=== PATIENT | female | born 1970 | race African-American/Black ===

== ENCOUNTER 2017-04-27 15:43 | Emergency (ER) | payer OTHER ==
[~2017-04-27] VITALS: Ht 172.7 cm; Wt 125.0 kg
[~2017-04-27 15:43] MED LIST: GLIP5TAB8 PO; INSUL; LEXA20TA PO; LISI-519 PO; MECL-62 PO; METF1000 PO; ZOFR4TAB PO; [UNRECOGNIZED DRUG - OTHER]
[2017-04-27 15:44] VITALS: BP 220/98; PULSE 76; RESP 18; TEMP 98.3; O2SAT 99
[2017-04-27 16:45] VITALS: BP 187/100; PULSE 66; RESP 19; O2SAT 100
[2017-04-27] MEDS ORDERED: SODIUM CHLOR 0.9% 1000 ML INJ 1,000 ML IV SCH (16:48)
[2017-04-27 16:57] VITALS: O2SAT 99
[2017-04-27] MEDS ORDERED: ONDANSETRON HCL 4 MG/2 ML VIAL IVP ONE (17:00)
[2017-04-27] MEDS ORDERED: MORPHINE SULFATE 4 MG/ML INJ IV PUSH ONE (17:00)
--- NOTE | 2017-04-27 17:13 | PD ---
HPI Chief Complaint: GI Complaint Time Seen by Provider: 17:11 Travel History International Travel<30 days: No Contact w/Intl Traveler<30days: No Traveled to known affect area: No History of Present Illness HPI 38-year-old female that presents to the ED for evaluation of nausea vomiting and diarrhea. Patient has had this for the past 8 days. Per patient she was able to tolerate some fluids but the past 4 days is becoming more severe. She denies eating anything new. She does have a history of diabetes as well as high blood pressure she's not been able take her medications for the past 4 days because she cannot keep them down. She's been able to keep some fluids down but she feels like she has no appetite. She has some abdominal cramping in the lower abdomen as if she has to go have a bowel movement. The patient her bowel movements have been watery. No blood from either end. No chest pain or shortness of breath. No fevers chills or sweats. No sick contacts. She has not checked her sugars recently. PFSH Past Medical History Cardiovascular Problems: Yes Diabetes: Yes Patient Takes Glucophage: Yes Diminished Hearing: No Hypertension: Yes Reproductive: Yes (gentital herpes) Tetanus Vaccination: < 5 Years Influenza Vaccination: Yes ?: Not LMP: last Wednesday : 3 Para: 3 Past Surgical History Section: Yes Other Surgery: Yes (CYST REMOVAL) Social History Alcohol Use: No Tobacco Use: No Substance Use: No Allergies-Medications (Allergen,Severity, Reaction): Coded Allergies: No Known Allergies (Unverified , 04/27/17) Reported Meds & Prescriptions Reported Meds & Active Scripts Active Lomotil (Diphenoxylate-Atropine) 2.5-0.025 Mg Tab 1 Tab PO Q6H PRN 7 Days Zofran (Ondansetron HCl) 4 Mg Tab 4 Mg PO Q6HR PRN Flagyl (Metronidazole) 500 Mg Tab 500 Mg PO BID 10 Days Zofran (Ondansetron HCl) 4 Mg Tab 4 Mg PO Q6HR PRN Meclizine (Meclizine HCl) 25 Mg Tab 25 Mg PO TID PRN Reported Lisinopril 5 Mg Tab 5 Mg PO DAILY Lexapro (Escitalopram Oxalate) 20 Mg Tab 20 Mg PO DAILY Glipizide 5 Mg Tab 5 Mg PO DAILY Take 30 minutes before a meal Metformin (Metformin HCl) 1,000 Mg Tab 1,000 Mg PO BIDPC With meals Review of Systems Except as stated in HPI: all other systems reviewed are Neg Physical Exam Narrative GENERAL: SKIN: Warm and dry. HEAD: Atraumatic. Normocephalic. EYES: Pupils equal and round 4 mm reactive to light and accommodation. No scleral icterus. No injection or drainage. ENT: No nasal bleeding or discharge. Mucous membranes pink and moist. Tongue is midline. No uvula deviation. NECK: Trachea midline. No JVD. CARDIOVASCULAR: Regular rate and rhythm. No murmurs, S3, S4. RESPIRATORY: No accessory muscle use. Clear to auscultation. Breath sounds equal bilaterally. GASTROINTESTINAL: Abdomen soft, non-tender, nondistended. Hepatic and splenic margins not palpable. MUSCULOSKELETAL: Extremities without clubbing, cyanosis, or edema. No obvious deformities. Full range of motion of the upper and lower extremities bilaterally. 2+ pulses bilaterally. NEUROLOGICAL: Awake and alert. No obvious cranial nerve deficits. Motor grossly within normal limits. Five out of 5 muscle strength in the arms and legs. Normal speech. PSYCHIATRIC: Appropriate mood and affect; insight and judgment normal. Data Data Last Documented VS Vital Signs Date Time Temp Pulse Resp B/P Pulse Ox O2 Delivery O2 Flow Rate FiO2 04/27/17 17:55 73 18 159/87 98 Room Air 04/27/17 15:44 98.3 Orders Complete Blood Count With Diff (04/27/17 16:48) Comprehensive Metabolic Panel (04/27/17 16:48) Lipase (04/27/17 16:48) Lactic Acid (04/27/17 16:48) Urinalysis - C+S If Indicated (04/27/17 16:48) Iv Access Insert/Monitor (04/27/17 16:48) Ecg Monitoring (04/27/17 16:48) Oximetry (04/27/17 16:48) Ondansetron Inj (Zofran Inj) (04/27/17 17:00) Sodium Chlor 0.9% 1000 Ml Inj (Ns 1000 M (04/27/17 16:48) Ed Urine Pregnancytest Poc (04/27/17 16:48) Beta Hydroxybutyrate (Acetone) (04/27/17 16:48) Morphine Inj (Morphine Inj) (04/27/17 17:00) Ct Abd/Pel W Iv Contrast(Rout) (04/27/17 ) Potassium Chloride (Kcl) (04/27/17 18:30) Iohexol 350 Inj (Omnipaque 350 Inj) (04/27/17 19:24) Labs Laboratory Tests Test 04/27/17 17:03 White Blood Count 5.8 TH/MM3 Red Blood Count 4.58 MIL/MM3 Hemoglobin 11.6 GM/DL Hematocrit 35.6 % Mean Corpuscular Volume 77.6 FL Mean Corpuscular Hemoglobin 25.2 PG Mean Corpuscular Hemoglobin 32.5 % Concent Red Cell Distribution Width 14.8 % Platelet Count 226 TH/MM3 Mean Platelet Volume 7.6 FL Neutrophils (%) (Auto) 52.4 % Lymphocytes (%) (Auto) 35.6 % Monocytes (%) (Auto) 10.7 % Eosinophils (%) (Auto) 0.9 % Basophils (%) (Auto) 0.4 % Neutrophils # (Auto) 3.1 TH/MM3 Lymphocytes # (Auto) 2.1 TH/MM3 Monocytes # (Auto) 0.6 TH/MM3 Eosinophils # (Auto) 0.1 TH/MM3 Basophils # (Auto) 0.0 TH/MM3 CBC Comment DIFF FINAL Differential Comment Sodium Level 138 MEQ/L Potassium Level 3.1 MEQ/L Chloride Level 104 MEQ/L Carbon Dioxide Level 28.1 MEQ/L Anion Gap 6 MEQ/L Blood Urea Nitrogen 7 MG/DL Creatinine 0.60 MG/DL Estimat Glomerular Filtration 129 ML/MIN Rate Random Glucose 133 MG/DL Lactic Acid Level 0.7 mmol/L Calcium Level 8.1 MG/DL Total Bilirubin 0.6 MG/DL Aspartate Amino Transf 32 U/L (AST/SGOT) Alanine Aminotransferase 44 U/L (ALT/SGPT) Alkaline Phosphatase 76 U/L Total Protein 7.7 GM/DL Albumin 3.6 GM/DL Lipase 85 U/L B-Hydroxybutyrate 0.08 MMOL/L MDM Medical Decision Making Medical Screen Exam Complete: Yes Emergency Medical Condition: Yes Medical Record Reviewed: Yes Interpretation(s) CBC & BMP Diagram 04/27/17 17:03 Last Impressions Abdomen/Pelvis CT 04/27/17 0000 Signed Impressions: Service Date/Time: Thursday, April 27, 2017 19:05 - CONCLUSION: 1. No dilated loops of small or large bowel. Redundant sigmoid colon. 2. Multicystic abnormalities about the left hip and acetabulum with mild osteophytes with preservation of joint space width. This suggests prior trauma. 3. Multiple small focal areas of pleural thickening in the lower chest, of uncertain significance. No lower lung infiltrates or evidence of pleural effusion. Santiago Christianson MD LFTs and lipase WNL UA negative Differential Diagnosis Nausea and vomiting versus gastroenteritis versus diverticulitis versus C. difficile versus DKA versus hyperglycemia versus dehydration Narrative Course 46-year-old female that presents to the ED for evaluation nausea vomiting and diarrhea. Patient was properly examined and was found to have signs and symptoms very consistent appears to be possible gastritis. Neurologic A or diverticulitis. Labs and imaging will be ordered. Patient was given IV fluids. Labs and imaging here showed no sign of acute disease. This time this appears to be gastroenteritis. No sign of DKA. Patient feels improved after medications given. Patient will be given 1 more dose of nausea medication as well as first dose of Flagyl here. Patient will be treated with this with antibiotics to cover for infectious etiology including C. difficile. Patient agrees with this plan. Patient will be also given a prescription for Lomotil as well as Zofran for nausea and diarrhea. Patient agrees with plan. Patient was told to come back to the ED for anything worsens. See ED worsening symptoms. Diagnosis Primary Impression: Gastroenteritis Patient Instructions: General Instructions Departure Forms: Tests/Procedures, Work Release Enter return to work date: Apr 29, 2017 Additional Instructions: Take medications as prescribed. Liquid diet until better. Follow-up with PCP. See ED for worsening symptoms. Med/Other Pt SpecificInfo: Prescription(s) given Scripts Diphenoxylate-Atropine (Lomotil)2.5-0.025 Mg Tab1 Tab PO Q6H PRN (DIARRHEA) 7 Days Ref 0 Prov:Maycol Padron MD 04/27/17 Ondansetron (Zofran)4 Mg Tab4 Mg PO Q6HR PRN (NAUSEA OR VOMITING) #20 TAB Ref 0 Prov:Maycol Padron MD 04/27/17 Metronidazole (Flagyl)500 Mg [id number] Mg PO BID 10 Days Ref 0 Prov:Maycol Padron MD 04/27/17 Disposition: 01 DISCHARGE HOME Condition: Stable Sajan Clifford Apr 27, 2017 17:13
[2017-04-27 17:54] LABS: AUTOMATED NEUTROPHIL # 3.1 TH/MM3 (1.8-7.7); BASOPHIL % 0.4 % (0.0-2.0); EOSINOPHIL # 0.1 TH/MM3 (0-0.4); EOSINOPHIL % 0.9 % (0.0-4.0); HEMATOCRIT 35.6 % (35.0-46.0); HEMO FLAGS DIFF FINAL; LYMPH % 35.6 % (9.0-44.0); LYMPHOCYTE # 2.1 TH/MM3 (1.0-4.8); MEAN CELL VOLUME 77.6 FL (80.0-100.0); MEAN CORPUSCULAR HEMOGLOBIN 25.2 PG (27.0-34.0); MEAN CORPUSCULAR HGB CONC 32.5 % (32.0-36.0); MONO % 10.7 % (0.0-8.0); NEUT % 52.4 % (16.0-70.0); PLATELET COUNT 226 TH/MM3 (150-450); RED BLOOD COUNT 4.58 MIL/MM3 (4.00-5.30); RED CELL DISTRIBUTION WIDTH 14.8 % (11.6-17.2); WHITE BLOOD COUNT 5.8 TH/MM3 (4.0-11.0)
[2017-04-27 17:55] VITALS: BP 159/87; PULSE 73; RESP 18; O2SAT 98
[2017-04-27 18:18] LABS: ALT (GPT) 44 U/L (10-53); ANION GAP 6 MEQ/L (5-15); AST (GOT) 32 U/L (15-37); BICARBONATE 28.1 MEQ/L (21.0-32.0); BLOOD UREA NITROGEN 7 MG/DL (7-18); CHLORIDE 104 MEQ/L (98-107); GLOMERULAR FILTRATION RATE 129 ML/MIN (>89); POTASSIUM 3.1 MEQ/L (3.5-5.1); SODIUM (NA) 138 MEQ/L (136-145)
[2017-04-27 18:20] LABS: ALKALINE PHOSPHATASE 76 U/L (45-117); BETA-HYDROXYBUTYRATE 0.08 MMOL/L (0.00-0.39); TOTAL BILIRUBIN ADULT 0.6 MG/DL (0.2-1.0)
[2017-04-27] MEDS ORDERED: POTASSIUM CHLORIDE 10 MEQ CONTROLLED RELEASE TAB PO ONE (18:30)
[2017-04-27] MEDS ORDERED: IOHEXOL 350 MG/ML 10 ML VIAL (for RAD DIAG) IV ONE (19:24)
--- NOTE | 2017-04-27 19:37 | RADRPT ---
EXAM DATE/TIME: 04/27/2017 19:05 [facility] COMPARISON: No previous studies available for comparison. INDICATIONS : Diffuse abdomen pain, vomiting for eight days. IV CONTRAST: 90 cc Omnipaque 350 (iohexol) IV ORAL CONTRAST: No oral contrast ingested. RADIATION DOSE: 28.2 CTDIvol (mGy) ; Patient body habitus MEDICAL HISTORY : Hypertension. SURGICAL HISTORY : section. ENCOUNTER: Initial ACUITY: 1 week PAIN SCALE: 4/10 LOCATION: Bilateral lower quadrant TECHNIQUE: Volumetric scanning of the abdomen and pelvis was performed. Using automated exposure control and ad justment of the mA and/or kV according to patient size, radiation dose was kept as low as reasonably achievable to obtain optimal diagnostic quality images. DICOM format image data is available electro nically for review and comparison. FINDINGS: LOWER LUNGS: The visualized lower lungs are clear. There are multiple small focal areas of pleural thickening in the lower chest measuring less than 3 mm in thickness. No evidence of pleural effusion. LIVER: Homogeneous density without lesion. There is no dilation of the biliary tree. No calcified gallston es. SPLEEN: Normal size without lesion. PANCREAS: Within normal limits. KIDNEYS: Normal in size and shape. There is no mass, stone or hydronephrosis. ADRENAL GLANDS: Within normal limits. VASCULAR: There is no aortic aneurysm. BOWEL/MESENTERY: There are multiple oval hyperdensities in the proximal small bowel, probably representing recently in gested pills. No dilated loops of small bowel seen. Mild prominence of the right and transverse col on. A small tubular structure about the medial cecum, believed to represent the appendix, is normal in size and contains gas. No fluid tracking along either paracolic gutter. The sigmoid colon is red undant and does extend into the left hypogastric region. ABDOMINAL WALL: Within normal limits. RETROPERITONEUM: There is no lymphadenopathy. BLADDER: No wall thickening or mass. REPRODUCTIVE: Within normal limits. INGUINAL: There is no lymphadenopathy or hernia. MUSCULOSKELETAL: Abnormal appearance to the left hip with multiple cysts with thin sclerotic rims involving the femora l head, femoral neck, and supra-acetabular region. No pathologic fracture seen in the left hip. CONCLUSION: 1. No dilated loops of small or large bowel. Redundant sigmoid colon. 2. Multicystic abnormalities about the left hip and acetabulum with mild osteophytes with preservatio n of joint space width. This suggests prior trauma. 3. Multiple small focal areas of pleural thickening in the lower chest, of uncertain significance. N o lower lung infiltrates or evidence of pleural effusion. Santiago Christianson MD on April 27, 2017 at 19:28 Board Certified Radiologist. This report was verified electronically.
[2017-04-27] MEDS ORDERED: METR-1 PO (20:02)
[2017-04-27] MEDS ORDERED: ZOFR4TAB PO (20:02)
[2017-04-27] MEDS ORDERED: LOMO2.5T PO (20:02)
[2017-04-27] MEDS ORDERED: ONDANSETRON HCL 4 MG/2 ML VIAL IV PUSH ONE (20:15)
[2017-04-27] MEDS ORDERED: metroNIDAZOLE 500 MG TAB PO ONE (20:15)
[2017-05-06] MEDS ORDERED: GLIP5TAB8 PO (10:10)
[2017-05-06] MEDS ORDERED: LISI10TA3 PO (10:10)
[2017-05-06] MEDS ORDERED: METF1000 PO (10:10)
[2017-05-06] MEDS ORDERED: PAXI30TA7 PO (10:10)
== END 2017-04-27 20:25 | disposition home or self-care (01) ==
LOC: NEPC 15:43
DX: K52.9 Noninfective gastroenteritis and colitis, unspecified (principal); E11.9 Type 2 diabetes mellitus without complications; I10 Essential (primary) hypertension; Z79.84 Long term (current) use of oral hypoglycemic drugs
CPT/HCPCS: 74177; 80053; 82010; 83605; 83690; 84703; 85025; 96361; 96374; 96375; 99285; J2270; J2405; J7030; Q9967

== ENCOUNTER 2017-05-04 21:19 | Emergency (ER) | payer OTHER ==
[~2017-05-04] VITALS: Ht 172.7 cm; Wt 99.0 kg
[~2017-05-04 21:19] MED LIST changes: -INSUL; +LOMO2.5T PO; +METR-1 PO; -[UNRECOGNIZED DRUG - OTHER]
[2017-05-04 21:25] VITALS: BP_SYST 208; BP_SYST 218; BP_DIAS 103; BP_DIAS 111; PULSE 82; RESP 16; TEMP 99.1; O2SAT 98
--- NOTE | 2017-05-04 22:02 | PD ---
Physical Exam Time Seen by Provider: 22:01 Narrative 46 y/o female with h/a, bilateral leg edema for one week. Denies . Vital signs reviewed. Seen at triage desk. Awaiting bed placement. Data Data Last Documented VS Vital Signs Date Time Temp Pulse Resp B/P Pulse Ox O2 Delivery O2 Flow Rate FiO2 05/04/17 21:25 99.1 82 16 208/111 98 218/103 [facility] Medical Record Reviewed: Yes Supervised Visit with THI: Terry Lei May 04, 2017 22:02
[2017-05-04 22:15] VITALS: BP 194/88; PULSE 76; RESP 18; O2SAT 98
[2017-05-04 22:30] VITALS: BP 194/88; PULSE 78; RESP 16; O2SAT 98
[2017-05-04] MEDS ORDERED: SODIUM CHLORIDE 0.9% FLUSH 10 ML FLUSH IV FLUSH PRN (22:30)
--- NOTE | 2017-05-04 22:41 | PD ---
HPI Chief Complaint: Edema Time Seen by Provider: 22:20 Travel History International Travel<30 days: No Contact w/Intl Traveler<30days: No Traveled to known affect area: No History of Present Illness HPI Patient comes in complaining of worsening bilateral lower extremity edema. Patient states he's been ongoing for approximately a week. States it progressively getting worse. Patient states she normally gets edema in bilateral ankles however improves with elevation. States over the past several days is not improved with elevation. Patient reports pain with walking. Patient denies anything making it better. States pain radiates up her bilateral lower extremities. Denies any injuries, recent surgeries, recent hospital stays, or dyspnea on exertion. Denies any chest pain, fevers, abdominal pain, loss change in bowel or bladder, or numbness or tingling anywhere. PFSH Past Medical History Cardiovascular Problems: Yes Diabetes: Yes Diminished Hearing: No Hypertension: Yes Reproductive: Yes (gentital herpes) : 3 Para: 3 Past Surgical History Section: Yes Other Surgery: Yes (CYST REMOVAL) Social History Alcohol Use: No Tobacco Use: No Substance Use: No Allergies-Medications (Allergen,Severity, Reaction): Coded Allergies: No Known Allergies (Unverified , 05/04/17) Reported Meds & Prescriptions Reported Meds & Active Scripts Active Lomotil (Diphenoxylate-Atropine) 2.5-0.025 Mg Tab 1 Tab PO Q6H PRN 7 Days Flagyl (Metronidazole) 500 Mg Tab 500 Mg PO BID 10 Days Reported Lisinopril 5 Mg Tab 5 Mg PO DAILY Lexapro (Escitalopram Oxalate) 20 Mg Tab 20 Mg PO DAILY Glipizide 5 Mg Tab 5 Mg PO DAILY Take 30 minutes before a meal Metformin (Metformin HCl) 1,000 Mg Tab 1,000 Mg PO BIDPC With meals Review of Systems Except as stated in HPI: all other systems reviewed are Neg Physical Exam Narrative GENERAL: Well-developed, overly nourished, in no acute distress, and non-ill appearing. SKIN: Focused skin assessment warm and dry. HEAD: Atraumatic. Normocephalic. EYES: Pupils equal and round. EOMI. No scleral icterus. No injection or drainage. ENT: No nasal bleeding or discharge. Mucous membranes pink and moist. NECK: Trachea midline. Supple. No nuclear rigidity. CARDIOVASCULAR: Regular rate and rhythm. No murmur appreciated. Dorsal pulses 2+, equal, and intact bilaterally. Capillary refill less than 2 seconds. RESPIRATORY: No accessory muscle use. No respiratory distress. Clear to auscultation. Breath sounds equal bilaterally. MUSCULOSKELETAL: No obvious deformities. No clubbing. No cyanosis. 1+ pitting edema bilateral lower extremities. Full range of motion. Negative Homans sign bilaterally. NEUROLOGICAL: Awake and alert. No obvious cranial nerve deficits. Motor grossly within normal limits. Normal speech. PSYCHIATRIC: Appropriate mood and affect; insight and judgment normal. Data Data Last Documented VS Vital Signs Date Time Temp Pulse Resp B/P Pulse Ox O2 Delivery O2 Flow Rate FiO2 05/04/17 21:25 99.1 82 16 208/111 98 218/103 Orders Basic Metabolic Panel (Bmp) (05/04/17 22:23) Complete Blood Count With Diff (05/04/17 22:23) Prothrombin Time / Inr (Pt) (05/04/17 22:23) Act Partial Throm Time (Ptt) (05/04/17 22:23) Iv Access Insert/Monitor (05/04/17 22:23) Ecg Monitoring (05/04/17 22:23) Oximetry (05/04/17 22:23) Sodium Chloride 0.9% Flush (Ns Flush) (05/04/17 22:30) Us Leg Venous Doppler Bilat (05/04/17 22:23) MDM Medical Decision Making Medical Screen Exam Complete: Yes Emergency Medical Condition: Yes Differential Diagnosis DVT, hypoalbuminemia, dependent edema, renal insufficiency, other Narrative Course Patient was seen examined. Initial laboratory and radiological studies were ordered. Patient was signed out to Dr. Hope at the end of my shift. Please see her documentation for final diagnosis and disposition Octavio Hogan May 04, 2017 22:41
[2017-05-04 22:42] LABS: AUTOMATED NEUTROPHIL # 3.2 TH/MM3 (1.8-7.7); BASOPHIL # 0.1 TH/MM3 (0-0.2); BASOPHIL % 0.8 % (0.0-2.0); EOSINOPHIL # 0.1 TH/MM3 (0-0.4); EOSINOPHIL % 2.3 % (0.0-4.0); HEMATOCRIT 33.9 % (35.0-46.0); HEMO FLAGS DIFF FINAL; LYMPH % 36.9 % (9.0-44.0); LYMPHOCYTE # 2.4 TH/MM3 (1.0-4.8); MEAN CELL VOLUME 78.2 FL (80.0-100.0); MEAN CORPUSCULAR HEMOGLOBIN 25.5 PG (27.0-34.0); MEAN CORPUSCULAR HGB CONC 32.6 % (32.0-36.0); MONO % 10.6 % (0.0-8.0); NEUT % 49.4 % (16.0-70.0); PLATELET COUNT 221 TH/MM3 (150-450); RED BLOOD COUNT 4.33 MIL/MM3 (4.00-5.30); WHITE BLOOD COUNT 6.5 TH/MM3 (4.0-11.0)
--- NOTE | 2017-05-04 22:50 | PD ---
Data Data Last Documented VS Vital Signs Date Time Temp Pulse Resp B/P Pulse Ox O2 Delivery O2 Flow Rate FiO2 05/04/17 22:15 18 99 Room Air 05/04/17 22:15 76 194/88 05/04/17 21:25 99.1 Orders Basic Metabolic Panel (Bmp) (05/04/17 22:23) Complete Blood Count With Diff (05/04/17 22:23) Prothrombin Time / Inr (Pt) (05/04/17 22:23) Act Partial Throm Time (Ptt) (05/04/17 22:23) Iv Access Insert/Monitor (05/04/17 22:23) Ecg Monitoring (05/04/17 22:23) Oximetry (05/04/17 22:23) Sodium Chloride 0.9% Flush (Ns Flush) (05/04/17 22:30) Us Leg Venous Doppler Bilat (05/04/17 22:23) Acetaminophen (Tylenol) (05/04/17 23:45) Potassium Chloride (Kcl) (05/05/17 00:00) Labs Laboratory Tests Test 05/04/17 22:30 White Blood Count 6.5 TH/MM3 Red Blood Count 4.33 MIL/MM3 Hemoglobin 11.1 GM/DL Hematocrit 33.9 % Mean Corpuscular Volume 78.2 FL Mean Corpuscular Hemoglobin 25.5 PG Mean Corpuscular Hemoglobin 32.6 % Concent Red Cell Distribution Width 15.0 % Platelet Count 221 TH/MM3 Mean Platelet Volume 7.3 FL Neutrophils (%) (Auto) 49.4 % Lymphocytes (%) (Auto) 36.9 % Monocytes (%) (Auto) 10.6 % Eosinophils (%) (Auto) 2.3 % Basophils (%) (Auto) 0.8 % Neutrophils # (Auto) 3.2 TH/MM3 Lymphocytes # (Auto) 2.4 TH/MM3 Monocytes # (Auto) 0.7 TH/MM3 Eosinophils # (Auto) 0.1 TH/MM3 Basophils # (Auto) 0.1 TH/MM3 CBC Comment DIFF FINAL Differential Comment Sodium Level 139 MEQ/L Potassium Level 3.2 MEQ/L Chloride Level 105 MEQ/L Carbon Dioxide Level 24.8 MEQ/L Anion Gap 9 MEQ/L Blood Urea Nitrogen 10 MG/DL Creatinine 0.75 MG/DL Estimat Glomerular Filtration 100 ML/MIN Rate Random Glucose 188 MG/DL Calcium Level 8.0 MG/DL [facility] Medical Record Reviewed: Yes Supervised Visit with THI: No Interpretation(s) Last Impressions Lower Extremity Ultrasound 05/04/173 Signed Impressions: Service Date/Time: Thursday, May 04, 2017 22:35 - CONCLUSION: Normal examination. Juan Vyas MD Narrative Course During the course of the patients emergency department visit, the patients history, examination, and differential diagnosis were reviewed with the patient. The patient had IV access obtained and blood work sent for analysis. The patient was placed on a incinerator plant supervisor with oximetry and blood pressure monitoring. The patient was initially evaluated by Octavio, the physician access services assistant. The patient's case was checked out to me by him at the conclusion of his shift. The patient initially arrived with an elevated blood pressure on triage up to 218/103. The patient was resting back in the emergency department has a repeat blood pressure of 162/76. The patient was provided Tylenol for pain. The patient was given potassium supplement orally. The patients laboratory studies were reviewed and remarkable for a white count of 6.5, hemoglobin 11.1, platelets 221 with monocytes 10.6, basic metabolic profile is remarkable for potassium of 3.2, glucose 188 Radiology studies were reviewed and remarkable for an ultrasound of bilateral lower extremities reveals no evidence of DVT. The patient's results were discussed with her, her questions were answered. The patient was instructed on wearing compression stockings while she is standing, elevating her legs frequently. Decrease in the salt in her diet down to a 2 g limits per day. Given the patient's elevated blood pressure with lower extremity edema the patient will have hydrochlorothiazide added to her regimen with a potassium supplement. The patient is resting comfortably and feels better, is alert and in no distress. The patients results and examination findings were discussed with the patient. The repeat examination is unremarkable and benign. The history, exam, diagnostic testing, and current condition do not suggest any significant pathology to warrant further testing, continued ED treatment, admission, or surgical evaluation at this point. The vital signs have been stable. The patient does not have uncontrollable pain, intractable vomiting, or other significant symptoms. The patient's condition is stable and appropriate for discharge. The patient will pursue further outpatient evaluation with a primary care physician or other designated or consulting physician as indicated in the discharge instructions. The patient expressed understanding and was agreeable with this plan. Diagnosis Primary Impression: Bilateral lower extremity edema Additional Impression: Hypertension Qualified Code: I10 - Hypertension, unspecified type Referrals: Primary Care Physician 2 days Patient Instructions: General Instructions, Hypertension (ED), Leg Edema (ED) Additional Instruction: The patient was instructed on wearing compression stockings while she is standing, elevating her legs frequently. Decrease in the salt in her diet down to a 2 g limits per day. Given the patient's elevated blood pressure with lower extremity edema the patient will have hydrochlorothiazide added to her regimen with a potassium supplement. Med/Other Pt SpecificInfo: Prescription(s) given Scripts Potassium Bicarbonate Effervescent (K-Effervescent)25 Meq Tab1 Tab PO Q12HR 7 Days Prov:Maria Teresa Hope MD 05/05/17 Hydrochlorothiazide 25 Mg Tab25 Mg PO DAILY #7 TAB Ref 0 Prov:Maria Teresa Hope MD 05/05/17 Disposition: 01 DISCHARGE HOME Condition: Stable Maria Teresa Hope MD May 04, 2017 22:50
[2017-05-04 23:02] LABS: BICARBONATE 24.8 MEQ/L (21.0-32.0); POTASSIUM 3.2 MEQ/L (3.5-5.1)
--- NOTE | 2017-05-04 23:31 | RADRPT ---
EXAM DATE/TIME: 05/04/2017 22:35 [facility] COMPARISON: No previous studies available for comparison. INDICATIONS : Bilateral leg swelling. MEDICAL HISTORY : Hypertension. Diabetic. SURGICAL HISTORY : section. ENCOUNTER: Initial ACUITY: 1 week PAIN SCORE: 7/10 LOCATION: Bilateral leg. TECHNIQUE: Venous ultrasound of the left and right leg was performed from the inguinal ligament to the proximal calf. Real-time, color Doppler and spectral tracing, compression and augmentation techniques were us ed. FINDINGS: RIGHT LEG: There is normal compressibility of the deep venous system from the inguinal region to the proximal ca lf. No echogenic clot is seen in the lumen of the common femoral, femoral, popliteal, and posterior tibial veins. There is a normal response of the venous system to proximal and distal augmentation an d respiration. LEFT LEG: There is normal compressibility of the deep venous system from the inguinal region to the proximal ca lf. No echogenic clot is seen in the lumen of the common femoral, femoral, popliteal, and posterior tibial veins. There is a normal response of the venous system to proximal and distal augmentation an d respiration. CONCLUSION: Normal examination. Juan Vyas MD on May 04, 2017 at 23:29 Board Certified Radiologist. This report was verified electronically.
[2017-05-04] MEDS ORDERED: ACETAMINOPHEN 325 MG TAB PO ONE (23:45)
[2017-05-05] MEDS ORDERED: POTASSIUM CHLORIDE 20 MEQ CONTROLLED RELEASE TAB PO ONE
[2017-05-05] MEDS ORDERED: HYDR25TA5 PO (00:14)
[2017-05-05] MEDS ORDERED: K-EF25TA PO (00:14)
[2017-05-05 00:30] VITALS: BP 162/76; PULSE 70; RESP 17; O2SAT 98
[2017-05-05 01:10] VITALS: RESP 16
[2017-05-06] MEDS ORDERED: PAXI30TA7 PO (10:10)
[2017-05-06] MEDS ORDERED: LISI10TA3 PO (10:10)
[2017-05-06] MEDS ORDERED: GLIP5TAB8 PO (10:10)
[2017-05-06] MEDS ORDERED: METF1000 PO (10:10)
== END 2017-05-05 01:15 | disposition home or self-care (01) ==
LOC: NEPE 22:30
DX: R60.9 Edema, unspecified (principal); I10 Essential (primary) hypertension; E11.9 Type 2 diabetes mellitus without complications; Z79.84 Long term (current) use of oral hypoglycemic drugs
CPT/HCPCS: 80048; 85025; 93970

== ENCOUNTER 2017-05-13 23:10 | Observation (INO) | payer OTHER ==
[~2017-05-13] VITALS: Ht 172.7 cm; Wt 128.5 kg
[~2017-05-13 23:10] MED LIST changes: -LEXA20TA PO; -LISI-519 PO; +LISI10TA3 PO; -MECL-62 PO; +PAXI30TA7 PO; -ZOFR4TAB PO
[2017-05-13 23:12] VITALS: BP 233/122; PULSE 111; RESP 18; TEMP 99; O2SAT 93
[2017-05-13 23:36] VITALS: O2SAT 95
[2017-05-13] MEDS: RESP: ALBUTEROL 2.5 MG/3 ML NEB (SCH) INH (23:45)
[2017-05-13] MEDS ORDERED: methylPREDNISolone SOD SUCC 125 MG/2 ML VIAL IVP ONE (23:45)
[2017-05-13 23:46] VITALS: O2SAT 95
--- NOTE | 2017-05-13 23:47 | PD ---
HPI Chief Complaint: Respiratory Distress Time Seen by Provider: 23:30 Travel History International Travel<30 days: No Contact w/Intl Traveler<30days: No Traveled to known affect area: No History of Present Illness HPI PATIENT HAS HAD SOB AND COUGHING SINCE 2129 TODAY AND NOT IMPROVING, ALL OCCURRED TODAY, DENIES PROD COUGH, DENIES F/V/D/N....DENIED ANY EXPOSURE TO CHEMICAL OR FUMES PER PATIENT. NOT OXYGEN DEPENDANT PMHX: DIABETES, SLEEP APNEA PFSH Past Medical History Cardiovascular Problems: Yes (HTN) Diabetes: Yes (metformin/glipizide) Patient Takes Glucophage: No Diminished Hearing: No Hypertension: Yes Reproductive: Yes (gentital herpes) ?: Not LMP: tubal ligation : 3 Para: 3 Past Surgical History Section: Yes Other Surgery: Yes (CYST REMOVAL) Social History Alcohol Use: No Tobacco Use: No Substance Use: No Allergies-Medications (Allergen,Severity, Reaction): Coded Allergies: No Known Allergies (Unverified , 05/06/17) Reported Meds & Prescriptions Reported Meds & Active Scripts Active Paxil (Paroxetine HCl) 30 Mg Tab 30 Mg PO DAILY Metformin (Metformin HCl) 1,000 Mg Tab 1,000 Mg PO BIDPC With meals Reported Glipizide 5 Mg Tab 5 Mg PO DAILY Take 30 minutes before a meal Review of Systems Except as stated in HPI: all other systems reviewed are Neg Respiratory: Positive: Cough, Wheezing Physical Exam Narrative GENERAL: SKIN: Warm and dry. HEAD: Atraumatic. Normocephalic. EYES: Pupils equal and round. No scleral icterus. No injection or drainage. ENT: No nasal bleeding or discharge. Mucous membranes pink and moist. NECK: Trachea midline. No JVD. CARDIOVASCULAR: Regular rate and rhythm. RESPIRATORY: No accessory muscle use. COUGH AND WHEEZY BILATERALLY GASTROINTESTINAL: Abdomen soft, non-tender, nondistended. MUSCULOSKELETAL: Extremities without clubbing, cyanosis, or edema. No obvious deformities. NEUROLOGICAL: Awake and alert. No obvious cranial nerve deficits. Motor grossly within normal limits. Five out of 5 muscle strength in the arms and legs. Normal speech. PSYCHIATRIC: Appropriate mood and affect; insight and judgment normal. Data Data Last Documented VS Orders Orders Complete Blood Count With Diff (05/13/17 23:31) Comprehensive Metabolic Panel (05/13/17 23:31) B-Type Natriuretic Peptide (8/17/17 23:31) Act Partial Throm Time (Ptt) (05/13/17 23:31) Prothrombin Time / Inr (Pt) (05/13/17 23:31) Ckmb (Isoenzyme) Profile (05/13/17 23:31) Troponin I (05/13/17 23:31) Arterial Blood Gas (Abg) (05/13/17 23:31) Influenzae A/B Antigen (05/13/17 23:31) Iv Access Insert/Monitor (05/13/17 23:31) Electrocardiogram (05/13/17 23:31) Ecg Monitoring (05/13/17 23:31) Oximetry (05/13/17 23:31) Oxygen Administration (05/13/17 23:) Chest, Single Ap (05/13/17 23:31) Methylprednisolone So Succ Inj (Solumedr (05/13/17 23:45) Albuterol Neb (Albuterol Neb) (05/13/17 23:45) Ct Pulmonary Angiogram (05/14/17 ) CKMB (05/13/17 23:40) CKMB% (05/13/17 23:40) Iohexol 350 Inj (Omnipaque 350 Inj) (05/14/17 00:31) Benzonatate (Tessalon) (05/14/17 01:00) Admit Order (Ed Use Only) (05/14/17 02:02) Labs Laboratory Tests Test 05/13/17 23:40 05/14/17 00:04 White Blood Count 7.8 TH/MM3 Red Blood Count 4.55 MIL/MM3 Hemoglobin 11.6 GM/DL Hematocrit 35.2 % Mean Corpuscular Volume 77.4 FL Mean Corpuscular Hemoglobin 25.4 PG Mean Corpuscular Hemoglobin Concent 32.8 % Red Cell Distribution Width 15.4 % Platelet Count 261 TH/MM3 Mean Platelet Volume 8.1 FL Neutrophils (%) (Auto) 64.1 % Lymphocytes (%) (Auto) 26.4 % Monocytes (%) (Auto) 6.3 % Eosinophils (%) (Auto) 2.4 % Basophils (%) (Auto) 0.8 % Neutrophils # (Auto) 5.0 TH/MM3 Lymphocytes # (Auto) 2.0 TH/MM3 Monocytes # (Auto) 0.5 TH/MM3 Eosinophils # (Auto) 0.2 TH/MM3 Basophils # (Auto) 0.1 TH/MM3 CBC Comment DIFF FINAL Differential Comment Prothrombin Time 10.9 SEC Prothromb Time International Ratio 1.0 RATIO Activated Partial Thromboplast Time 26.6 SEC Blood Urea Nitrogen 11 MG/DL Creatinine 0.77 MG/DL Random Glucose 230 MG/DL Total Protein 7.5 GM/DL Albumin 3.4 GM/DL Calcium Level 8.3 MG/DL Alkaline Phosphatase 93 U/L Aspartate Amino Transf (AST/SGOT) 17 U/L Alanine Aminotransferase (ALT/SGPT) 26 U/L Total Bilirubin 0.5 MG/DL Sodium Level 134 MEQ/L Potassium Level 3.7 MEQ/L Chloride Level 102 MEQ/L Carbon Dioxide Level 25.0 MEQ/L Anion Gap 7 MEQ/L Estimat Glomerular Filtration Rate 97 ML/MIN Total Creatine Kinase 245 U/L Creatine Kinase MB 2.3 NG/ML Creatine Kinase MB % 0.9 % Troponin I LESS THAN 0.02 NG/ML B-Type Natriuretic Peptide 71 PG/ML Blood Gas Puncture Site LT RADIAL Blood Gas Patient Temperature 98.6 Blood Gas HCO3 22 mmol/L Blood Gas Base Excess -0.8 mmol/L Blood Gas Oxygen Saturation 87 % Arterial Blood pH 7.49 Arterial Blood Partial Pressure CO2 29 mmHg Arterial Blood Partial Pressure O2 53 mmHg Arterial Blood Oxygen Content 14.1 Vol % Arterial Blood Carboxyhemoglobin 1.4 % Arterial Blood Methemoglobin 0.8 % Blood Gas Hemoglobin 11.6 G/DL Oxygen Delivery Device NASAL CANNULA Blood Gas Liter Flow 2 L/M MDM Medical Decision Making Medical Screen Exam Complete: Yes Emergency Medical Condition: Yes Medical Record Reviewed: Yes Interpretation(s) ABG: RESP ALKALOSIS WITH HYPOXEMIA (PAO2 53 ON 2L NC, ON A NON OXYGEN DEPENDANT PATIENT) Differential Diagnosis ASTHMA V PNA V PE V ID V PULM EDEMA Narrative Course patient evaluation showed hypoxemia, that improved after neb and supplemental oxygen. neg pe on ct but did show extensive groundglass findings which may be due to pneumonitis, patient admitted for observation and further investigation. Diagnosis Primary Impression: Hypoxemia Additional Impression: INHALATIONAL VS HYPERSENSITIVITY PNEUMONITIS Admitting Information Admitting Physician Requests: Observation Scripts Lisinopril (Lisinopril) 20 Mg Tab 20 MG PO BID for Blood Pressure Management, #60 TAB 1 Refill Prov: Yina Castelan PA-C 05/16/17 Levofloxacin (Levofloxacin) 750 Mg Tablet 750 MG PO DAILY for Infection, #5 TAB 0 Refills Prov: Yina Castelan PA-C 05/15/17 Prednisone (Prednisone) 20 Mg Tab 20 MG PO BID for Inflammation, #6 TAB 0 Refills Prov: Yina Castelan PA-C 05/15/17 Hydrochlorothiazide (Hydrochlorothiazide) 25 Mg Tab 25 MG PO DAILY for Blood Pressure Management, #30 TAB 1 Refill Prov: Yina Castelan PA-C 05/15/17 Albuterol 18 GM Inh (Ventolin Hfa 18 GM Inh) 90 Mcg/Act Aer 2 PUFF INH Q6HR Y for SOB/WHEEZING, #1 INHALER Prov: Yina Castelan PA-C 05/15/17 Jeffrey Patten MD May 13, 2017 23:47
[2017-05-13 23:57] LABS: BASOPHIL # 0.1 TH/MM3 (0-0.2); BASOPHIL % 0.8 % (0.0-2.0); EOSINOPHIL # 0.2 TH/MM3 (0-0.4); EOSINOPHIL % 2.4 % (0.0-4.0); HEMATOCRIT 35.2 % (35.0-46.0); HEMO FLAGS DIFF FINAL; LYMPH % 26.4 % (9.0-44.0); MEAN CELL VOLUME 77.4 FL (80.0-100.0); MEAN CORPUSCULAR HEMOGLOBIN 25.4 PG (27.0-34.0); MEAN CORPUSCULAR HGB CONC 32.8 % (32.0-36.0); MONO % 6.3 % (0.0-8.0); NEUT % 64.1 % (16.0-70.0); PLATELET COUNT 261 TH/MM3 (150-450); RED BLOOD COUNT 4.55 MIL/MM3 (4.00-5.30); RED CELL DISTRIBUTION WIDTH 15.4 % (11.6-17.2); WHITE BLOOD COUNT 7.8 TH/MM3 (4.0-11.0)
[2017-05-14] VITALS (10 sets, daily range): BP systolic 178–199; BP diastolic 82–101; PULSE 83–104; RESP 16–20; TEMP 98–98.7; O2SAT 91–97
[2017-05-14 00:06] LABS: APTT (PATIENT) 26.6 SEC (24.3-30.1); PROTHROMBIN TIME - PATIENT 10.9 SEC (9.8-11.6)
[2017-05-14 00:13] LABS: ANION GAP 7 MEQ/L (5-15); AST (GOT) 17 U/L (15-37); BLOOD UREA NITROGEN 11 MG/DL (7-18); CHLORIDE 102 MEQ/L (98-107); GLOMERULAR FILTRATION RATE 97 ML/MIN (>89); POTASSIUM 3.7 MEQ/L (3.5-5.1); SODIUM (NA) 134 MEQ/L (136-145)
--- NOTE | 2017-05-14 00:13 | RADRPT ---
EXAM DATE/TIME: 05/13/2017 23:45 [facility] COMPARISON: No previous studies available for comparison. INDICATIONS : Shortness of breath and cough. MEDICAL HISTORY : None. SURGICAL HISTORY : None. ENCOUNTER: Initial ACUITY: 1 day PAIN SCORE: 10 LOCATION: chest FINDINGS: A single view of the chest demonstrates the lungs to be symmetrically aerated without evidence of mas s, infiltrate or effusion. The cardiomediastinal contours are unremarkable. Osseous structures are intact. CONCLUSION: No acute cardiopulmonary process. Praasnna Christine MD on May 14, 2017 at 0:11 Board Certified Radiologist. This report was verified electronically.
[2017-05-14 00:14] LABS: ALT (GPT) 26 U/L (10-53)
[2017-05-14 00:18] LABS: ALKALINE PHOSPHATASE 93 U/L (45-117); CREATINE KINASE 245 U/L (26-192); TOTAL BILIRUBIN ADULT 0.5 MG/DL (0.2-1.0)
[2017-05-14 00:25] LABS: BLOOD GAS BASE EXCESS -0.8 mmol/L (-2-2); BLOOD GAS CARBOXYHEMOGLOBIN 1.4 % (0-4); BLOOD GAS HCO3 22 mmol/L (22-26); BLOOD GAS METHEMOGLOBIN 0.8 % (0-2); BLOOD GAS O2 HGB SATURATION 87 % (90-100); BLOOD GAS OXYGEN CONTENT 14.1 Vol % (12.0-20.0); BLOOD GAS PCO2 29 mmHg (38-42); BLOOD GAS PO2 53 mmHg (61-120); BLOOD GAS TOTAL HGB 11.6 G/DL (12.0-16.0); CRITICAL VALUE YES; TEMP CORR TO 98.6
[2017-05-14 00:26] LABS: DRAW SITE LT RADIAL; LITER FLOW 2 L/M; NUMBER OF ARTERIAL PUNCTURES 1; OXYGEN DEVICE NASAL CANNULA; STAT YES; ULNAR PULSE PRESENT
[2017-05-14 00:30] LABS: CKMB 2.3 NG/ML (0.5-3.6)
[2017-05-14] MEDS ORDERED: IOHEXOL 350 MG/ML 10 ML VIAL (for RAD DIAG) IV ONE (00:31)
[2017-05-14] MEDS ORDERED: BENZONATATE 100 MG CAP PO ONE (01:00)
--- NOTE | 2017-05-14 01:26 | RADRPT ---
EXAM DATE/TIME: 05/14/2017 00:28 [facility] COMPARISON: CHEST SINGLE AP, May 13, 2017, 23:45. INDICATIONS : Shortness of breath with cough. IV CONTRAST: 70 cc Omnipaque 350 (iohexol) IV RADIATION DOSE: 23.32 CTDIvol (mGy) MEDICAL HISTORY : Hypertension. Diabetes mellitus type 2. SURGICAL HISTORY : None. ENCOUNTER: Initial ACUITY: 1 day PAIN SCALE: 0/10 LOCATION: chest TECHNIQUE: Volumetric scanning of the chest was performed using a pulmonary embolism protocol MIP images were re constructed. Using automated exposure control and adjustment of the mA and/or kV according to patien t size, radiation dose was kept as low as reasonably achievable to obtain optimal diagnostic quality images. DICOM format image data is available electronically for review and comparison. Follow-up recommendations for detected pulmonary nodules are based at a minimum on nodule size and pa tient risk factors according to Fleischner Society Guidelines. FINDINGS: PULMONARY ARTERIES: No filling defects are seen in the pulmonary arteries through the segmental level. LUNGS: Impressive, diffuse and symmetric airspace disease best characterized by extensive groundglass nodula r densities centrally with relative sparing of the periphery of both lungs. PLEURAE: There is no pleural thickening or pleural effusion. MEDIASTINUM: There is good visualization of the great vessels of the middle mediastinum. No evidence of mediastin al or hilar adenopathy/mass. MUSCULOSKELETAL: Within normal limits for patient age. MISCELLANEOUS: The visualized upper abdominal organs demonstrate no acute abnormality. CONCLUSION: 1. Impressive, bilateral symmetric airspace disease with multiple groundglass nodular densities, mos t discrete in the upper lobes and coalescing in the lower lobes with a central predominance and relat fidel sparing of the periphery. Findings are atypical and may represent a hypersensitivity pneumonitis or other inhalation injury. The diffuse nature of the process makes this very difficult to identify o n plain film examination, even retrospectively. 2. No associated pulmonary embolus or effusion. Prasanna Christine MD on May 14, 2017 at 1:18 Board Certified Radiologist. This report was verified electronically.
[2017-05-14] MEDS ORDERED: GLUCAGON 1 MG/ML VIAL OTHER PRN (02:15)
[2017-05-14] MEDS ORDERED: ONDANSETRON HCL 4 MG/2 ML VIAL IVP PRN (02:15)
[2017-05-14] MEDS ORDERED: MAGNESIUM HYDROXIDE SUSP 30 ML CUP PO PRN (02:15)
[2017-05-14] MEDS ORDERED: SENNOSIDES 8.6 MG TAB PO PRN (02:15)
[2017-05-14] MEDS ORDERED: LACTULOSE SYRUP 20 GM/30 ML CUP PO PRN (02:15)
[2017-05-14] MEDS ORDERED: DEXTROSE 50% IN WATER 50 ML VIAL(D50) IV PRN (02:15)
[2017-05-14] MEDS ORDERED: BISACODYL 10 MG SUPP RECTAL PRN (02:15)
[2017-05-14] MEDS ORDERED: ACETAMINOPHEN 325 MG TAB PO PRN (02:15)
[2017-05-14] MEDS ORDERED: SODIUM CHLORIDE 0.9% FLUSH 10 ML FLUSH IV FLUSH PRN (02:15)
[2017-05-14] MEDS ORDERED: SODIUM CHLOR 0.9% 1000 ML INJ 1,000 ML IV ONE (02:15)
[2017-05-14] MEDS ORDERED: MORPHINE SULFATE 4 MG/ML INJ IV PRN (02:15)
[2017-05-14] MEDS: LEVOFLOXACIN 750 MG PREMIX INJ 150 ML IV SCH (02:40)
--- NOTE | 2017-05-14 04:58 | HHI.HP ---
HPI Service [facility] Primary Care Physician ERIK Verde Admission Diagnosis HYPOXEMIA, INHALATIONAL VS HYPERSENSITIVITY PNEUMONITIS Diagnoses: (1) Pneumonitis Diagnosis: Principal (2) HTN (hypertension) Diagnosis: Principal (3) DM (diabetes mellitus) Diagnosis: Principal Travel History International Travel<30 Days: No Contact w/Intl Traveler <30 Da: No Traveled to Known Affected Are: No History of Present Illness This is a 46-year-old female with a PMH of HTN and DM who presented to the ER with complaints of SOB, cough and sore throat. States symptoms have been ongoing for the last 3 weeks, however became severe last night. Denies fever, chills, nausea, vomiting or diarrhea. No sick contacts. Has presented to the ER on multiple occasions this month alone for various complaints, 04/27/17 w/ nausea/vomiting/diarrhea, found to have Gastroenteritis, Rx for Lomotil/Flagyl/ Zofran. On 05/04/17 presented for bilateral lower extremity edema, Doppler negative for DVT, lab work unremarkable, d/c'd home w/ HCTZ and K+. No mention of cough or SOB per previous notes. Tonight pt reports worsening SOB and cough. On arrival, BP 233/122, HR 111, O2 sat 93% on RA, Temp 99.0. BP currently 183/85, HR 104. CBC essentially unremarkable. Chemistry unremarkable except for CPK 245. Troponin negative. BS 230. INR 1.0. CXR with no acute findings. CTA Pulm negative for PE, impressive bilateral symmetric airspace disease, possibly hypersensitivity pneumonitis or inhalation injury. Pt denies recent chemical exposure. S/p Solu-Medrol and DuoNeb in ER w / some improvement. Negative for tobacco. No recent travel. Review of Systems Except as stated in HPI: all other systems reviewed are Neg ROS: 14 point review of systems otherwise negative. Past Family Social History Past Medical History PMH: HTN and DM Past Surgical History PAST SURGICAL HISTORY: Allergies: Coded Allergies: No Known Allergies (Unverified , 05/06/17) Family History PAST FAMILY HISTORY: Reviewed. No h/o DM or CAD Social History PAST SOCIAL HISTORY: Negative for alcohol, tobacco or drugs. Physical Exam Vital Signs Vital Signs Date Time Temp Pulse Resp B/P Pulse Ox O2 Delivery O2 Flow Rate FiO2 05/14/17 00:49 104 20 183/85 94 Nasal Cannula 3 05/13/17 23:46 95 Nasal Cannula 2.00 05/13/17 23:36 95 Nasal Cannula 2 05/13/17 23:36 95 Nasal Cannula 2 05/13/17 23:32 93 Room Air 05/13/17 23:12 99.0 111 18 233/122 93 Room Air Physical Exam PE: GENERAL: Pleasant middle-aged white female in no acute distress, intermittent dry cough. HEENT: PERRLA, EOMI. No scleral icterus or conjunctival pallor. No lid lag or facial droop. CARDIOVASCULAR: Regular rate and rhythm. No obvious murmurs to auscultation. No chest tenderness to palpation. RESPIRATORY: No obvious rhonchi, +wheezing. Clear to auscultation. Breath sounds equal bilaterally. GASTROINTESTINAL: Abdomen soft, non-tender, nondistended. BS normal. MUSCULOSKELETAL: Extremities without clubbing, cyanosis, or edema. No obvious deformities. NEUROLOGICAL: Awake, alert and oriented x4. No focal neurologic deficits. Moving both upper and lower extremities spontaneously. Laboratory Laboratory Tests Test 05/13/17 05/14/17 23:40 00:04 White Blood Count 7.8 Red Blood Count 4.55 Hemoglobin 11.6 Hematocrit 35.2 Mean Corpuscular Volume 77.4 Mean Corpuscular Hemoglobin 25.4 Mean Corpuscular Hemoglobin 32.8 Concent Red Cell Distribution Width 15.4 Platelet Count 261 Mean Platelet Volume 8.1 Neutrophils (%) (Auto) 64.1 Lymphocytes (%) (Auto) 26.4 Monocytes (%) (Auto) 6.3 Eosinophils (%) (Auto) 2.4 Basophils (%) (Auto) 0.8 Neutrophils # (Auto) 5.0 Lymphocytes # (Auto) 2.0 Monocytes # (Auto) 0.5 Eosinophils # (Auto) 0.2 Basophils # (Auto) 0.1 CBC Comment DIFF FINAL Differential Comment Prothrombin Time 10.9 Prothromb Time International 1.0 Ratio Activated Partial 26.6 Thromboplast Time Sodium Level 134 Potassium Level 3.7 Chloride Level 102 Carbon Dioxide Level 25.0 Anion Gap 7 Blood Urea Nitrogen 11 Creatinine 0.77 Estimat Glomerular Filtration 97 Rate Random Glucose 230 Calcium Level 8.3 Total Bilirubin 0.5 Aspartate Amino Transf 17 (AST/SGOT) Alanine Aminotransferase 26 (ALT/SGPT) Alkaline Phosphatase 93 Total Creatine Kinase 245 Creatine Kinase MB 2.3 Creatine Kinase MB % 0.9 Troponin I LESS THAN 0.02 B-Type Natriuretic Peptide 71 Total Protein 7.5 Albumin 3.4 Blood Gas Puncture Site LT RADIAL Blood Gas Patient Temperature 98.6 Blood Gas HCO3 22 Blood Gas Base Excess -0.8 Blood Gas Oxygen Saturation 87 Arterial Blood pH 7.49 Arterial Blood Partial 29 Pressure CO2 Arterial Blood Partial 53 Pressure O2 Arterial Blood Oxygen Content 14.1 Arterial Blood 1.4 Carboxyhemoglobin Arterial Blood Methemoglobin 0.8 Blood Gas Hemoglobin 11.6 Oxygen Delivery Device NASAL CANNULA Blood Gas Liter Flow 2 Result Diagram: 05/13/17233905/13/172339 Assessment and Plan Problem List: (1) Pneumonitis ICD Code: J18.9 Status: Acute (2) HTN (hypertension) ICD Code: I10 Status: Acute (3) DM (diabetes mellitus) ICD Code: E11.9 Status: Acute Assessment and Plan A/P: 1. Pneumonitis: reports nasal congestion and post-nasal drip, possibly cause of pneumonitis. CXR w/ no acute findings, CTA Pulm negative for PE, however impressive bilateral groundglass nodular densities possibly hypersensitivity pneumonitis or inhalation injury. Denies chemical exposure, sick contacts or recent travel. S/p Solu-Medrol and DuoNeb w/ some improvement. Continue w/ Solu-Medrol, DuoNeb, Mucinex, Symbicort. Start on Levaquin for empiric treatment of atypical PNA. Consult Pulm if no improvement. 2. HTN: BP 220's on arrival, currently 180/85, HR 104, likely compounded by acute SOB/cough. Resume home medications, monitor BP. 3. DM: Sliding scale w/ Accu-Cheks. Resume home medications. 4. DVT Prophylaxis: SCD/Jemal. 5. Social work for d/c planning as needed. 6. Case discussed w/ ER physician at length. Parisa Keith MD May 14, 2017 04:58
[2017-05-14] MEDS: methylPREDNISolone SOD SUCC 40 MG/1 ML VIAL IV PUSH SCH ×3 (06:55→22:39)
[2017-05-14] MEDS ORDERED: GLIP5TAB8 PO (07:28)
[2017-05-14] MEDS: glipiZIDE 5 MG TAB PO SCH (08:00)
[2017-05-14] MEDS: BUDESONIDE-FORMOTEROL 160/4.5 MCG INHALER INH SCH ×2 (08:20→22:39)
[2017-05-14] MEDS: metFORMIN HCL 500 MG TAB PO SCH ×2 (08:20→12:57)
[2017-05-14] MEDS: guaiFENesin E.R. 600 MG TAB PO SCH ×2 (08:20→22:38)
[2017-05-14] MEDS: DOCUSATE SODIUM 50 MG/SENNA 8.6 MG TAB PO SCH ×2 (08:21→21:00)
[2017-05-14] MEDS: PARoxetine HCL 20 MG TAB PO SCH (08:21)
[2017-05-14] MEDS: SODIUM CHLORIDE 0.9% FLUSH 10 ML FLUSH IV FLUSH SCH ×2 (08:22→21:00)
[2017-05-14] MEDS: INSULIN ASPART SUPPLEMENTAL SCALE SQ SCH ×3 (08:57→22:38)
[2017-05-14] MEDS ORDERED: LISINOPRIL 10 MG TAB PO SCH (09:00)
--- NOTE | 2017-05-14 09:21 | EKG ---
Date Performed: 05/14/2017 Time Performed: 00:45:00 PTAGE: 46 years EKG: SINUS TACHYCARDIA LOW QRS VOLTAGE IN PRECORDIAL LEADS ABNORMAL ECG NO PREVIOUS TRACING DOCTOR: Jake Lazaro Interpretating Date/Time 05/14/2017 09:17:50
[2017-05-14] MEDS: ACETAMINOPHEN/HYDROcodone 325 MG/5 MG TAB PO PRN ×2 (10:56→17:00)
[2017-05-14] MEDS: cloNIDine HCL 0.1 MG TAB PO PRN (10:56)
--- NOTE | 2017-05-14 14:11 | HHI.PR ---
Subjective Remarks Follow up for pneumonitis. The patient reports feeling much better today. Has occasional dry cough but much improved compared to yesterday. Denies any significant shortness of breath or chest pain. O2 sat still dropping at times, down to 89% earlier today, now stable on room air. BP remains elevated, patient states her PCP discussed increasing her lisinopril to 20mg. Objective Vitals Vital Signs Date Time Temp Pulse Resp B/P Pulse Ox O2 Delivery O2 Flow Rate FiO2 05/14/17 12:12 98.3 86 20 181/82 97 05/14/17 10:56 180/101 05/14/17 09:59 181/87 05/14/17 08:14 98.4 85 20 188/88 97 05/14/17 07:25 84 18 199/94 95 Room Air 05/14/17 04:49 86 16 181/84 96 Nasal Cannula 2 05/14/17 00:49 104 20 183/85 94 Nasal Cannula 3 05/13/17 23:46 95 Nasal Cannula 2.00 05/13/17 23:36 95 Nasal Cannula 2 05/13/17 23:36 95 Nasal Cannula 2 05/13/17 23:32 93 Room Air 05/13/17 23:12 99.0 111 18 233/122 93 Room Air Result Diagram: 05/13/17 2340 05/13/17 [address] Angiography 05/14/17 0000 Signed Impressions: Service Date/Time: Sunday, May 14, 2017 00:28 - CONCLUSION: 1. Impressive , bilateral symmetric airspace disease with multiple groundglass nodular densities, most discrete in the upper lobes and coalescing in the lower lobes with a central predominance and relative sparing of the periphery. Findings are atypical and may represent a hypersensitivity pneumonitis or other inhalation injury. The diffuse nature of the process makes this very difficult to identify on plain film examination, even retrospectively. 2. No associated pulmonary embolus or effusion. Prasanna Christine MD Chest X-Ray 05/13/17 2331 Signed Impressions: Service Date/Time: April 23:45 - CONCLUSION: No acute cardiopulmonary process. Prasanna Christine MD Objective Remarks GENERAL: Well-nourished, well-developed obese female patient in [employer]. SKIN: Warm and dry. No rash. HEENT: Normocephalic. Atraumatic.Pupils equal and round. Mucous membranes pink and moist. NECK: Supple. Trachea midline. CARDIOVASCULAR: Regular rate and rhythm. S1, S2 noted. No murmur appreciated. RESPIRATORY: No accessory muscle use. Breath sounds slightly diminished at bilateral bases, otherwise clear to auscultation, no wheezing. Breath sounds equal bilaterally. GASTROINTESTINAL: Abdomen soft, non-tender, nondistended. Normoactive bowel sounds x4. MUSCULOSKELETAL: No obvious deformities. Extremities without clubbing, cyanosis , or edema. NEUROLOGICAL: Awake and alert. No obvious cranial nerve deficits. Motor grossly within normal limits. Normal speech. PSYCHIATRIC: Appropriate mood and affect; insight and judgment normal. Medications and IVs Current Medications Medications (Trade) Dose Ordered Sig/Jen Route Start Time Stop Time Status Last Admin (SoluMEDROL INJ) 40 mg Q6HR IV PUSH 05/14/17 06:00 05/14/17 12:25 (Mucinex Er) 600 mg BID PO 05/14/17 09:00 05/14/17 08:20 Budesonide/ Formoterol Fumarate 2 puff 2 puff Q12HR INH 05/14/17 09:00 05/14/17 08:20 (Levaquin 750 Mg Premix Inj) 150 ml @ 100 mls/hr Q24H IV 05/14/17 03:00 05/14/17 02:40 (D50w (Vial) Inj) 50 ml UNSCH PRN IV 05/14/17 02:15 (Glucagon Inj) 1 mg UNSCH PRN OTHER 05/14/17 02:15 (NS Flush) 2 ml UNSCH PRN IV FLUSH 05/14/17 02:15 (NS Flush) 2 ml BID IV FLUSH 05/14/17 09:00 05/14/17 08:22 (Zofran Inj) 4 mg Q6H PRN IVP 05/14/17 02:15 (Tylenol) 650 mg Q6H PRN PO 05/14/17 02:15 ([place] 5-325 Mg) 1 tab Q4H PRN PO 05/14/17 02:15 05/14/17 10:56 (Morphine Inj) 2 mg Q3H PRN IV 05/14/17 02:15 (Senia-Colace) 1 tab BID PO 05/14/17 09:00 05/14/17 08:21 (Milk Of Magnesia Liq) 30 ml Q12H PRN PO 05/14/17 02:15 (Senokot) 17.2 mg Q12H PRN PO 05/14/17 02:15 (Dulcolax Supp) 10 mg DAILY PRN RECTAL 05/14/17 02:15 (Lactulose Liq) 30 ml DAILY PRN PO 05/14/17 02:15 (Glucotrol) 5 mg DAILY@08 PO 05/14/17 08:00 05/14/17 08:00 (Glucophage) 1,000 mg BIDPC PO 05/14/17 09:00 05/14/17 08:20 (Paxil) 30 mg DAILY PO 05/14/17 09:00 05/14/17 08:21 (Prinivil) 10 mg DAILY PO 05/14/17 09:00 05/14/17 08:20 (Catapres) 0.1 mg Q6H PRN PO 05/14/17 08:00 05/14/17 10:56 A/P Problem List: (1) Pneumonitis ICD Code: J18.9 Status: Acute (2) HTN (hypertension) ICD Code: I10 Status: Acute (3) DM (diabetes mellitus) ICD Code: E11.9 Status: Acute Assessment and Plan 46-year-old female with a PMH of HTN and DM who presented to the ER with complaints of SOB, cough and sore throat. States symptoms have been ongoing for the last 3 weeks, however became severe last night. Acute Pneumonitis: reports nasal congestion and post-nasal drip, possibly cause of pneumonitis. CXR w/ no acute findings, CTA Pulm negative for PE, however impressive bilateral groundglass nodular densities possibly hypersensitivity pneumonitis or inhalation injury. Denies chemical exposure, sick contacts or recent travel; however does have multiple small grandchildren with frequent contact. S/p Solu-Medrol and DuoNeb w/ some improvement. -Continue w/ Solu-Medrol, DuoNeb, Mucinex, Symbicort. -Start on Levaquin for empiric treatment of atypical PNA. Consult Pulm if no improvement, patient is improving today Accelerated HTN: BP 220's on arrival, currently 180/85, HR 104, likely compounded by acute SOB/cough. -Resume home medications, increase patient's lisinopril from 10mg to 20mg. -Clonidine prn. -Monitor BP, adjust antihypertensives as needed. DM: Chronic, stable, monitor closely while on steroids -Medium dose Sliding scale w/ Accu-Cheks. -Resume home medications. Holding metformin due to receiving IV contrast. DVT Prophylaxis: SCD/Jemal. Discharge Planning Possible discharge tomorrow if continued clinical improvement. Yina Castelan PA-C May 14, 2017 2:11 pm
[2017-05-14] MEDS ORDERED: LISINOPRIL 10 MG TAB PO ONE (17:00)
[2017-05-15] VITALS (9 sets, daily range): BP systolic 131–202; BP diastolic 67–99; PULSE 70–85; RESP 17–18; TEMP 97.9–98.7; O2SAT 95–97
[2017-05-15] MEDS: LEVOFLOXACIN 750 MG PREMIX INJ 150 ML IV SCH (02:54)
[2017-05-15] MEDS: ACETAMINOPHEN/HYDROcodone 325 MG/5 MG TAB PO PRN ×2 (05:05→21:12)
[2017-05-15] MEDS: cloNIDine HCL 0.1 MG TAB PO PRN ×3 (05:37→21:12)
[2017-05-15] MEDS: methylPREDNISolone SOD SUCC 40 MG/1 ML VIAL IV PUSH SCH (05:38)
[2017-05-15] MEDS: metFORMIN HCL 500 MG TAB PO SCH ×2 (07:03→08:34)
[2017-05-15] MEDS: INSULIN ASPART SUPPLEMENTAL SCALE SQ SCH ×4 (07:40→21:00)
[2017-05-15] MEDS: glipiZIDE 5 MG TAB PO SCH (08:00)
[2017-05-15] MEDS: DOCUSATE SODIUM 50 MG/SENNA 8.6 MG TAB PO SCH ×2 (08:32→21:11)
[2017-05-15] MEDS: BUDESONIDE-FORMOTEROL 160/4.5 MCG INHALER INH SCH ×2 (08:33→21:12)
[2017-05-15] MEDS: guaiFENesin E.R. 600 MG TAB PO SCH ×2 (08:33→21:12)
[2017-05-15] MEDS: PARoxetine HCL 20 MG TAB PO SCH (08:33)
[2017-05-15] MEDS: SODIUM CHLORIDE 0.9% FLUSH 10 ML FLUSH IV FLUSH SCH ×2 (08:33→21:12)
[2017-05-15] MEDS ORDERED: LISINOPRIL 20 MG TAB PO SCH ×2 (09:00→21:00)
[2017-05-15 09:26] LABS: AUTOMATED NEUTROPHIL # 9.4 TH/MM3 (1.8-7.7); BASOPHIL % 0.3 % (0.0-2.0); HEMATOCRIT 34.9 % (35.0-46.0); LYMPH % 11.5 % (9.0-44.0); LYMPHOCYTE # 1.3 TH/MM3 (1.0-4.8); MEAN CELL VOLUME 78.5 FL (80.0-100.0); MEAN CORPUSCULAR HEMOGLOBIN 24.8 PG (27.0-34.0); MEAN CORPUSCULAR HGB CONC 31.6 % (32.0-36.0); MONO % 2.8 % (0.0-8.0); NEUT % 85.4 % (16.0-70.0); PLATELET COUNT 201 TH/MM3 (150-450); RED BLOOD COUNT 4.44 MIL/MM3 (4.00-5.30); RED CELL DISTRIBUTION WIDTH 15.3 % (11.6-17.2)
[2017-05-15 09:27] LABS: HEMO FLAGS AUTO DIFF
[2017-05-15 09:38] LABS: ANION GAP 6 MEQ/L (5-15); AST (GOT) 7 U/L (15-37); BICARBONATE 26.2 MEQ/L (21.0-32.0); BLOOD UREA NITROGEN 15 MG/DL (7-18); CHLORIDE 98 MEQ/L (98-107); GLOMERULAR FILTRATION RATE 105 ML/MIN (>89); POTASSIUM 4.2 MEQ/L (3.5-5.1); SODIUM (NA) 130 MEQ/L (136-145)
[2017-05-15 09:39] LABS: ALT (GPT) 23 U/L (10-53)
[2017-05-15 09:41] LABS: ALKALINE PHOSPHATASE 68 U/L (45-117); TOTAL BILIRUBIN ADULT 0.6 MG/DL (0.2-1.0)
[2017-05-15 09:51] LABS: SCAN/DIFF AUTO DIFF CONFIRMED
[2017-05-15] MEDS ORDERED: HYDROCHLOROTHIAZIDE 25 MG TAB PO SCH (10:15)
[2017-05-15] MEDS ORDERED: PRED20 PO (10:57)
[2017-05-15] MEDS ORDERED: LEVO750T3 PO (10:57)
[2017-05-15] MEDS ORDERED: LISI-515 PO (10:57)
[2017-05-15] MEDS ORDERED: VENTAER INH (10:57)
[2017-05-15] MEDS ORDERED: HYDR25TA5 PO (10:57)
--- NOTE | 2017-05-15 10:57 | HHI.DCPOC ---
Discharge Care Plan Diagnosis: (1) Pneumonitis (2) HTN (hypertension) (3) DM (diabetes mellitus) Goals to Promote Your Health * To prevent worsening of your condition and complications * To maintain your health at the optimal level Directions to Meet Your Goals Take your medications as prescribed Follow your dietary instruction Follow activity as directed Keep your appointments as scheduled Take your immunizations and boosters as scheduled If your symptoms worsen call your PCP, if no PCP go to Urgent Care Center or Emergency Room Smoking is Dangerous to Your Health. Avoid second hand smoke Call the 24-hour hour crisis hotline for domestic abuse at Yina Castelan PA-C May 15, 2017 10:57 am
--- NOTE | 2017-05-15 11:04 | HHI.PR ---
Subjective Remarks Follow up for pneumonitis, uncontrolled hypertension. The patient reports feeling much better again today. She reports only minimal nonproductive cough, no further wheezing or shortness of breath. Denies chest pain, fevers, or chills. SHe is concerned about her BP, recommended starting on HCTZ in addition to her lisinopril, patient agrees. She has no other medical complaints at this time. Objective Vitals Vital Signs Date Time Temp Pulse Resp B/P Pulse Ox O2 Delivery O2 Flow Rate FiO2 05/15/17 08:43 97.9 70 18 183/84 95 05/15/17 06:05 12 05/15/17 05:31 75 202/93 05/15/17 03:31 98.2 85 18 180/84 96 05/14/17 23:34 98.2 83 18 179/85 96 05/14/17 19:29 98.7 91 18 186/83 95 05/14/17 17:12 98.0 89 16 178/84 91 05/14/17 12:12 98.3 86 20 181/82 97 05/14/17 10:56 180/101 I/O 05/14/17 05/14/17 05/14/17 05/15/17 05/15/17 05/15/17 07:00 15:00 23:00 07:00 15:00 23:00 Intake Total 900 ml 850 ml Output Total 1200 ml Balance -300 ml 850 ml Intake Oral 900 ml 350 ml IV Total 500 ml Output Urine Total 1200 ml # Voids 3 Result Diagram: 05/15/17 0808 05/15/17 [address] Angiography 05/14/17 0000 Signed Impressions: Service Date/Time: Sunday, May 14, 2017 00:28 - CONCLUSION: 1. Impressive , bilateral symmetric airspace disease with multiple groundglass nodular densities, most discrete in the upper lobes and coalescing in the lower lobes with a central predominance and relative sparing of the periphery. Findings are atypical and may represent a hypersensitivity pneumonitis or other inhalation injury. The diffuse nature of the process makes this very difficult to identify on plain film examination, even retrospectively. 2. No associated pulmonary embolus or effusion. Prasanna Christine MD Chest X-Ray 05/13/17 [id number] Signed Impressions: Service Date/Time: Thursday, May 13, 2017 23:45 - CONCLUSION: No acute cardiopulmonary process. Prasanna Christine MD Objective Remarks GENERAL: Well-nourished, well-developed obese female patient in NAD. SKIN: Warm and dry. No rash. HEENT: Normocephalic. Atraumatic.Pupils equal and round. Mucous membranes pink and moist. CARDIOVASCULAR: Regular rate and rhythm. S1, S2 noted. No murmur appreciated. RESPIRATORY: No accessory muscle use. Clear to auscultation, no wheezing. Breath sounds equal bilaterally. GASTROINTESTINAL: Abdomen soft, non-tender, nondistended. Normoactive bowel sounds x4. MUSCULOSKELETAL: No obvious deformities. Extremities without clubbing, cyanosis , or edema. NEUROLOGICAL: Awake and alert. No obvious cranial nerve deficits. Motor grossly within normal limits. Normal speech. PSYCHIATRIC: Appropriate mood and affect; insight and judgment normal. Medications and IVs Current Medications Medications (Trade) Dose Ordered Sig/Jen Route Start Time Stop Time Status Last Admin (Mucinex Er) 600 mg BID PO 05/14/17 09:00 05/15/17 08:33 Budesonide/ Formoterol Fumarate 2 puff 2 puff Q12HR INH 05/14/17 09:00 05/15/17 08:33 (Levaquin 750 Mg Premix Inj) 150 ml @ 100 mls/hr Q24H IV 05/14/17 03:00 05/15/17 02:54 (D50w (Vial) Inj) 50 ml UNSCH PRN IV 05/14/17 02:15 (Glucagon Inj) 1 mg UNSCH PRN OTHER 05/14/17 02:15 (NS Flush) 2 ml UNSCH PRN IV FLUSH 05/14/17 02:15 (NS Flush) 2 ml BID IV FLUSH 05/14/17 09:00 05/15/17 08:33 (Zofran Inj) 4 mg Q6H PRN IVP 05/14/17 02:15 (Tylenol) 650 mg Q6H PRN PO 05/14/17 02:15 ([place] 5-325 Mg) 1 tab Q4H PRN PO 05/14/17 02:15 05/15/17 05:05 (Morphine Inj) 2 mg Q3H PRN IV 05/14/17 02:15 (Senia-Colace) 1 tab BID PO 05/14/17 09:00 05/15/17 08:32 (Milk Of Magnesia Liq) 30 ml Q12H PRN PO 05/14/17 02:15 (Senokot) 17.2 mg Q12H PRN PO 05/14/17 02:15 (Dulcolax Supp) 10 mg DAILY PRN RECTAL 05/14/17 02:15 (Lactulose Liq) 30 ml DAILY PRN PO 05/14/17 02:15 (Glucotrol) 5 mg DAILY@08 PO 05/14/17 08:00 05/15/17 08:00 (Glucophage) 1,000 mg BIDPC PO 05/14/17 09:00 05/14/17 08:20 (Paxil) 30 mg DAILY PO 05/14/17 09:00 05/15/17 08:33 (Catapres) 0.1 mg Q6H PRN PO 05/14/17 08:00 05/15/17 05:37 (SoluMEDROL INJ) 40 mg Q8HR IV PUSH 05/14/17 22:00 05/15/17 05:38 (Prinivil) 20 mg DAILY PO 05/15/17 09:00 05/15/17 08:32 (Hydrodiuril) 25 mg DAILY PO 05/15/17 10:15 05/15/17 10:29 (Ventolin Hfa Inh) 2 puff Q6HR INH 05/15/17 12:00 A/P Problem List: (1) Pneumonitis ICD Code: J18.9 Status: Acute (2) HTN (hypertension) ICD Code: I10 Status: Acute (3) DM (diabetes mellitus) ICD Code: E11.9 Status: Acute Assessment and Plan 46-year-old female with a PMH of HTN and DM who presented to the ER with complaints of SOB, cough and sore throat. States symptoms have been ongoing for the last 3 weeks, however became severe last night. Acute Pneumonitis: reports nasal congestion and post-nasal drip, possibly cause of pneumonitis. CXR w/ no acute findings, CTA Pulm negative for PE, however impressive bilateral groundglass nodular densities possibly hypersensitivity pneumonitis or inhalation injury. Denies chemical exposure, sick contacts or recent travel; however does have multiple small grandchildren with frequent contact. S/p Solu-Medrol and DuoNeb w/ some improvement. -Continue w/ Solu-Medrol, DuoNeb, Mucinex, Symbicort. -Start on Levaquin for empiric treatment of atypical PNA. -Patient much improved, O2 sat stable on room air, ready for discharge Accelerated HTN: BP 220's on arrival, currently 180/85, HR 104, likely compounded by acute SOB/cough. -Resume home medications, increase patient's lisinopril from 10mg to 20mg. -Clonidine prn. -Monitor BP, adjust antihypertensives as needed. -BP still elevated today, added HCTZ 25mg daily DM: Chronic, stable, monitor closely while on steroids -Medium dose Sliding scale w/ Accu-Cheks. -Resume home medications. Holding metformin due to receiving IV contrast. DVT Prophylaxis: SCD/Jemal. Discharge Planning 1050hrs: Likely discharge today when BP better controlled. Discharge patient to home Condition on discharge: Improved Heart Healthy/Diabetic Diet as tolerated Ad Judy activity Rx written: Ventolin HFA prn, HCTZ 25mg qd, Lisinopril 20mg qd, Prednisone 20mg bid x3days Follow-up with primary care physician Ritu VALENCIA within 1 week (already has scheduled appt on 05/20). Yina Castelan PA-C May 15, 2017 11:04 am
[2017-05-15] MEDS: ALBUTEROL SULFATE 90 MCG/ACT HFA 18 GM INHALER INH SCH ×2 (11:35→18:00)
[2017-05-15] MEDS ORDERED: NIFEdipine 60 MG SUSTAINED RELEASE TAB PO ONE (17:00)
[2017-05-15] MEDS ORDERED: predniSONE 20 MG TAB PO SCH (21:00)
[2017-05-16 03:40] VITALS: BP 177/79; PULSE 72; RESP 18; TEMP 98.4; O2SAT 94
[2017-05-16] MEDS: LEVOFLOXACIN 750 MG PREMIX INJ 150 ML IV SCH (03:57)
[2017-05-16] MEDS: cloNIDine HCL 0.1 MG TAB PO PRN (06:04)
[2017-05-16] MEDS: ACETAMINOPHEN/HYDROcodone 325 MG/5 MG TAB PO PRN (06:04)
[2017-05-16] MEDS: ALBUTEROL SULFATE 90 MCG/ACT HFA 18 GM INHALER INH SCH ×2 (06:04)
[2017-05-16] MEDS: INSULIN ASPART SUPPLEMENTAL SCALE SQ SCH (06:10)
[2017-05-16] MEDS ORDERED: LISI-515 PO ×2 (06:54→06:55)
[2017-05-16 07:46] VITALS: BP 135/77; PULSE 67; RESP 20; TEMP 97.9; O2SAT 95
--- NOTE | 2017-05-16 08:01 | HHI.DS ---
cc: Ritu Andrews BEE RANCHER Discharge Summary Admission Date May 14, 2017 at 2:04 am Discharge Date: May 16, 2017 Admitting Diagnosis HYPOXEMIA, INHALATIONAL VS HYPERSENSITIVITY PNEUMONITIS (1) Pneumonitis ICD Code: J18.9 - Pneumonia, unspecified organism Diagnosis: Principal (2) HTN (hypertension) ICD Code: I10 - Essential (primary) hypertension Diagnosis: Secondary (3) DM (diabetes mellitus) ICD Code: E11.9 - Type 2 diabetes mellitus without complications Diagnosis: Secondary Procedures None. Brief History - From Admission This is a 46-year-old female with a PMH of HTN and DM who presented to the ER with complaints of SOB, cough and sore throat. States symptoms have been ongoing for the last 3 weeks, however became severe last night. Denies fever, chills, nausea, vomiting or diarrhea. No sick contacts. Has presented to the ER on multiple occasions this month alone for various complaints, 04/27/17 w/ nausea/vomiting/diarrhea, found to have Gastroenteritis, Rx for Lomotil/Flagyl/ Zofran. On 05/04/17 presented for bilateral lower extremity edema, Doppler negative for DVT, lab work unremarkable, d/c'd home w/ HCTZ and K+. No mention of cough or SOB per previous notes. Tonight pt reports worsening SOB and cough. On arrival, BP 233/122, HR 111, O2 sat 93% on RA, Temp 99.0. BP currently 183/85, HR 104. CBC essentially unremarkable. Chemistry unremarkable except for CPK 245. Troponin negative. BS 230. INR 1.0. CXR with no acute findings. CTA Pulm negative for PE, impressive bilateral symmetric airspace disease, possibly hypersensitivity pneumonitis or inhalation injury. Pt denies recent chemical exposure. S/p Solu-Medrol and DuoNeb in ER w / some improvement. Negative for tobacco. No recent travel. CBC/BMP: 05/15/17 0808 05/15/17 0808 Significant Findings Laboratory Tests Test 05/13/17 05/14/17 05/15/17 23:40 00:04 08:08 Mean Corpuscular Volume 77.4 FL 78.5 FL (80.0-100.0) (80.0-100.0) Mean Corpuscular Hemoglobin 25.4 PG 24.8 PG (27.0-34.0) (27.0-34.0) Sodium Level 134 MEQ/L 130 MEQ/L (136-145) (136-145) Random Glucose 230 MG/DL 316 MG/DL (74-106) (74-106) Calcium Level 8.3 MG/DL (8.5-10.1) Total Creatine Kinase 245 U/L (26-192) Troponin I LESS THAN 0.02 NG/ML (0.02-0.05) Blood Gas Oxygen Saturation 87 % (90-100) Arterial Blood pH 7.49 (7.380-7.420) Arterial Blood Partial 29 mmHg (38-42) Pressure CO2 Arterial Blood Partial 53 mmHg Pressure O2 (61-120) Blood Gas Hemoglobin 11.6 G/DL (12.0-16.0) Hemoglobin 11.0 GM/DL (11.6-15.3) Hematocrit 34.9 % (35.0-46.0) Mean Corpuscular Hemoglobin 31.6 % Concent (32.0-36.0) Neutrophils (%) (Auto) 85.4 % (16.0-70.0) Neutrophils # (Auto) 9.4 TH/MM3 (1.8-7.7) Aspartate Amino Transf 7 U/L (15-37) (AST/SGOT) Albumin 3.3 GM/DL (3.4-5.0) Imaging Last Impressions CT Angiography 05/14/17 0000 Signed Impressions: Service Date/Time: Sunday, May 14, 2017 00:28 - CONCLUSION: 1. Impressive , bilateral symmetric airspace disease with multiple groundglass nodular densities, most discrete in the upper lobes and coalescing in the lower lobes with a central predominance and relative sparing of the periphery. Findings are atypical and may represent a hypersensitivity pneumonitis or other inhalation injury. The diffuse nature of the process makes this very difficult to identify on plain film examination, even retrospectively. 2. No associated pulmonary embolus or effusion. Prasanna Christine MD Chest X-Ray 05/13/17 [id number] Signed Impressions: Service Date/Time: Thursday, May 13, 2017 23:45 - CONCLUSION: No acute cardiopulmonary process. Prasanna Christine MD PE at Discharge GENERAL: Well-nourished, well-developed obese female patient in NAD. SKIN: Warm and dry. No rash. HEENT: Normocephalic. Atraumatic.Pupils equal and round. Mucous membranes pink and moist. CARDIOVASCULAR: Regular rate and rhythm. S1, S2 noted. No murmur appreciated. RESPIRATORY: No accessory muscle use. Clear to auscultation, no wheezing. Breath sounds equal bilaterally. GASTROINTESTINAL: Abdomen soft, non-tender, nondistended. Normoactive bowel sounds x4. MUSCULOSKELETAL: No obvious deformities. Extremities without clubbing, cyanosis , or edema. NEUROLOGICAL: Awake and alert. No obvious cranial nerve deficits. Motor grossly within normal limits. Normal speech. PSYCHIATRIC: Appropriate mood and affect; insight and judgment normal. Pt update on day of discharge Follow for pneumonitis, uncontrolled hypertension. The patient continues to feel much better again today. Very minimal cough. Denies any shortness of breath or wheezing. Denies any chest pain. Denies fevers or chills. Blood pressure much better controlled today on new antihypertensive regimen, currently BP 135/77. She is ambulating the halls without difficulty. She feels ready for discharge. Hospital Course 46-year-old female with a PMH of HTN and DM who presented to the ER with complaints of SOB, cough and sore throat. States symptoms have been ongoing for the last 3 weeks, however became severe last night. Acute Pneumonitis: reports nasal congestion and post-nasal drip, possibly cause of pneumonitis. CXR w/ no acute findings, CTA Pulm negative for PE, however impressive bilateral groundglass nodular densities possibly hypersensitivity pneumonitis or inhalation injury. Denies chemical exposure, sick contacts or recent travel; however does have multiple small grandchildren with frequent contact. She was treated with IV Solu-Medrol, DuoNeb, Mucinex bid, Symbicort bid. Also started on Levaquin for empiric treatment of atypical PNA. Patient much improved, O2 sat stable on room air, ready for discharge. Discharge with prescriptions for Levaquin, prednisone 20mg bid x3days, albuterol inhaler prn. Accelerated HTN: BP 220's on arrival, currently 180/85, HR 104, likely compounded by acute SOB/cough. Resumed home medications, increased patient's lisinopril from 10mg, then to 20mg, however still very uncontrolled, increased to 20mg bid and added HCTZ 25mg daily. Patient's BP much better controlled in the 130s/80s upon discharge. DM: Chronic, stable, monitored closely while on steroids. Resumed home medications, however held metformin due to receiving IV contrast. Medium dose Sliding scale w/ Accu-Cheks. Expect higher blood glucose while on steroids, patient educated. Of note, the patient is seeking employment and concerned about upcoming drug test since she has received [place] and IV morphine while in the hospital. She has asked that this be written in her medical records and was also handwritten on a prescription at discharge. Pt Condition on Discharge: Stable Discharge Disposition: Discharge Home Discharge Time: <= 30 minutes Discharge Instructions DIET: Follow Instructions for: Heart Healthy Diet, Diabetic Diet Activities you can perform: Regular-No Restrictions Follow up Referrals: PCP Follow-up - 05/20/17 with Ritu Andrews New Medications: Levofloxacin (Levofloxacin) 750 Mg Tablet 750 MG PO DAILY for Infection, #5 TAB 0 Refills Prednisone (Prednisone) 20 Mg Tab 20 MG PO BID for Inflammation, #6 TAB 0 Refills Albuterol 18 GM Inh (Ventolin Hfa 18 GM Inh) 90 Mcg/Act Aer 2 PUFF INH Q6HR PRN for SOB/WHEEZING, #1 INHALER Hydrochlorothiazide (Hydrochlorothiazide) 25 Mg Tab 25 MG PO DAILY for Blood Pressure Management, #30 TAB 1 Refill Lisinopril (Lisinopril) 20 Mg Tab 20 MG PO BID for Blood Pressure Management, #60 TAB 1 Refill Continued Medications: Glipizide (Glipizide) 5 Mg Tab 5 MG PO DAILY for Blood Sugar Management, #30 TAB 0 Refills Take 30 minutes before a meal Metformin (Metformin) 1,000 Mg Tab 1000 MG PO BIDPC for Blood Sugar Management, #180 TAB 0 Refills With meals Paroxetine (Paxil) 30 Mg Tab 30 MG PO DAILY, #90 TAB 0 Refills Discontinued Medications: Lisinopril (Lisinopril) 10 Mg Tab 10 MG PO DAILY, #90 TAB 1 Refill Yina Castelan PA-C May 16, 2017 8:01 am
== END 2017-05-16 13:05 | disposition home or self-care (01) ==
LOC: NEPE 23:10 → NEDA 05-14 02:04 → NEDH 05-14 06:49 → NEPGCP 05-14 08:05
PROVIDERS: ADMIT Hospitalist; ATTEND Hospitalist
DX: J18.9 Pneumonia, unspecified organism (principal); I10 Essential (primary) hypertension; E11.9 Type 2 diabetes mellitus without complications; I49.5 Sick sinus syndrome; R09.02 Hypoxemia; Z79.899 Other long term (current) drug therapy; Z79.84 Long term (current) use of oral hypoglycemic drugs; R06.02 Shortness of breath
CPT/HCPCS: 36600; 71010; 71275; 80053; 82550; 82552; 82805; 82948; 83880; 84484; 85025; 85610; 85730; 87804; 93005; 94640; 94664; 96361; 96365; 96366; 96372; 96375; 96376; 99285; G0378; J1815; J1956; J2270; J2920; J2930; J7030; J7512; J7613; Q9967